=== PATIENT | male | born 1960 | race African-American/Black ===

== ENCOUNTER 2016-12-02 20:43 | Emergency (ER) | payer OTHER ==
[2016-12-02 21:32] LABS: BASOPHIL % 0.5 % (0-2); PLATELET COUNT 227 x10^3mcL (130-400)
[2016-12-02 21:33] LABS: RED CELL DISTRIBUTION WIDTH 14.8 % (11.5-14.5)
[2016-12-02 21:36] LABS: CALCIUM 8.8 mg/dL (8.5-10.1); CARBON DIOXIDE 24.4 mmol/L (21-32); CREATININE SERUM 1.6 mg/dL (0.7-1.3); POTASSIUM SERUM 3.9 mmol/L (3.5-5.1)
[2016-12-02 21:41] LABS: BILIRUBIN TOTAL 0.3 mg/dL (0.20-1.00); TOTAL PROTEIN, SERUM 7.4 g/dL (6.4-8.2)
[2016-12-02 21:45] LABS: ALBUMIN 3.2 g/dL (3.4-5.0)
[2016-12-02 21:49] LABS: CK-MB 1.8 ng/mL (0-3.6)
[2016-12-02 23:45] VITALS: BP 140/78
== END 2016-12-02 23:45 | disposition home or self-care (01) ==
LOC: ED 20:43
PROVIDERS: Emergency Medicine
DX: L97.919 Non-pressure chronic ulcer of unspecified part of right lower leg with unspecified severity (principal); I10 Essential (primary) hypertension; Z88.0 Allergy status to penicillin
CPT/HCPCS: 83880; J0696; J2270

== ENCOUNTER 2016-12-30 10:07 | Inpatient (IN) | payer OTHER ==
[~2016-12-30] VITALS: Ht 193 cm; Wt 124.7 kg
--- NOTE | 2016-12-30 10:30 | NUR ---
PT PRESENTS WITH DRSG AND PAIN TO RLE. PT REPORTS RECENT TREATMENT FOR WOUNDS WITH ABX AND STS THAT WOUNDS HAVE BEEN WORSENING. PT NOTED TO HAVE EDEMA TO RLE AND FAINT R PEDAL PULSE. PT IS AAOX4, RESP EVEN AND UNLABORED, RA. PT REPORTS WEAKNESS AND NO OTHER COMPLAINTS.
--- NOTE | 2016-12-30 10:35 | NUR ---
DR STAFFORD AT BEDSIDE FOR MSE. DRSG TO RLE REMOVED PER DR STAFFORD VERBAL ORDER
--- NOTE | 2016-12-30 10:40 | NUR ---
UPON REMOVAL OF DRSGS TO RLE, MULTIPLE WOUNDS NOTED WITH YELLOWISH DRAINAGE AND FOUL ODOR NOTED.
[2016-12-30 11:04] LABS: BASOPHIL % 0.2 % (0-2); PLATELET COUNT 178 x10^3mcL (130-400)
[2016-12-30 11:05] LABS: RED CELL DISTRIBUTION WIDTH 14.7 % (11.5-14.5)
--- NOTE | 2016-12-30 11:10 | NUR ---
RADIOLOGY AT BEDSIDE FOR MIRNA
--- NOTE | 2016-12-30 11:29 | NUR ---
PT SIGNED TDAP CONSENT FORM
[2016-12-30 11:33] LABS: CALCIUM 9.4 mg/dL (8.5-10.1); CARBON DIOXIDE 26.6 mmol/L (21-32); CREATININE SERUM 1.7 mg/dL (0.7-1.3); POTASSIUM SERUM 3.7 mmol/L (3.5-5.1)
[2016-12-30 11:44] LABS: ALBUMIN 3.4 g/dL (3.4-5.0); BILIRUBIN TOTAL 1.49 mg/dL (0.20-1.00); MAGNESIUM 1.9 mg/dL (1.8-2.4); TOTAL PROTEIN, SERUM 8.2 g/dL (6.4-8.2)
[2016-12-30 11:49] LABS: CK-MB < 0.5 ng/mL (0-3.6); CREATINE KINASE 275 U/L (39-308)
--- NOTE | 2016-12-30 12:08 | NUR ---
PT REMAINS IN STABLE CONDITION. RESP EVEN AND UNLABORED, RA. VS STABLE. NAD NTOED. PT AT BEDSIDE. NS AND VANCO INFUSING
--- NOTE | 2016-12-30 12:23 | NUR ---
DR NUNES AT BEDSIDE SPEAKING WITH PT AND PT
--- NOTE | 2016-12-30 13:39 | NUR ---
DR. STAFFORD INFORMED LACTIC ACID=2.2
--- NOTE | 2016-12-30 14:40 | NUR ---
ATTEMPTED MED REC. PT UNABLE TO RECALL HTN MED. INSTRCUTED TO BRING IN MEDS AFTER PT IS TRANSFERED TO [facility]. PT VERBALIZES UNDERSTANDING
--- NOTE | 2016-12-30 14:46 | NUR ---
REPORT GIVEN TO LANRE PETERSEN IN [facility] FOR CONTINUITY OF CARE
--- NOTE | 2016-12-30 15:30 | NUR ---
3RD AND 4TH BAGS OF NS BOLUS PER SEPSIS PROTOCOL WERE INITIATED IN ER AT 1400. 200MLS AND 100MLS REMAINING. INFUSING REMAINING FLUIDS. VS: TEMP 99.8, HR 108, BP 148/74, RR 24, O2 SAT 97 ON ROOM AIR. PARTNER AT THE BEDSIDE. WILL CONTINUE TO MONITOR.
[2016-12-30 15:36] VITALS: BP 148/74
--- NOTE | 2016-12-30 15:45 | NUR ---
REVEIVED PATIENT FROM ED VIA GUERNEY, PATIENT ALERT AND ORIENTED AT BEDSIDE, PATIENT C/O PAIN TO RLE AND WILL MEDICATED ORDERED, ORIENTED PATIENT TO ROOM AND SURROUNDINGS, BED IN LOW POSITION, BED RAILS UP X 2, CALL LIGHT WITHIN REACH, WILL ENDORSE CARE TO PRIMARY NURSE LANRE
[2016-12-30 15:51] LABS: CHOLESTEROL/HDL RATIO 2.2
[2016-12-30 16:07] LABS: T3 TOTAL 1.15 ng/mL
--- NOTE | 2016-12-30 16:30 | NUR ---
BP AT THIS TIME 145/78, MAP 100, HR 110
[2016-12-30 16:44] LABS: FREE T4 0.94 ng/dL (0.76-1.46); FREE THYROXINE INDEX 2.7 ug/dL (1.4-4.5); T4(THYROXINE) 8.1 ug/dL (4.7-13.3)
--- NOTE | 2016-12-30 16:59 | NUR ---
DR. NUNES IN TO SEE PATIENT AT THIS TIME AND DISCUSS PLAN OF CARE.
--- NOTE | 2016-12-30 17:26 | NUR ---
NOTIFIED DR. NUNES RHYTHM STRIP SHOWED ST BB WITH 1ST AVB AT THIS TIME
[2016-12-30 18:10] LABS: microscopic required? YES; urine erythrocyte 2+ (NEGATIVE)
[2016-12-30 18:19] LABS: AMPHETAMINE QUAL UR NONE DETECTED (NEG <=1000)
[2016-12-30 18:38] VITALS: BP 98/61
--- NOTE | 2016-12-30 19:21 | NUR ---
NOTIFIED DR. JACOBSON TEMP 101.3 AFTER TYLENOL WAS GIVEN (SEE EMAR). LAST BP 98/61, RR 20, HR 105. ENDORSED CARE TO NOC TRINITY DEL TORO.
[2016-12-30 19:30] VITALS: BP 94/54
--- NOTE | 2016-12-30 19:30 | NUR ---
PT IS A/O X4, VERBAL RESPONSIVE, ABLE TO TELL WHAT HE NEEDS, LUNG SOUND CLEAR BILATERAL, NO COUGH, NO SOB, PT IS ON TELE 22, ST, DENY ANY CHEST PAIN OR DISCOMFORT, BOWEL SOUND PRESENT ALL 4 QUADRATION, NO DISTENTION, NO TENDER. RIGHT LOW EXTREMITY IS WRAP BY LILLIAN WRAP BY PODATRIST, LEFT FEET HAS TRACE EDEMA NOTED. IV AT LEFT FA, NO LEAKING, NO INFILTRATION. ALL ADLS ASSIST, ALL NEED MET, CALL LIGHT IN REACH, WILL CONTINUE TO MONITOR.
--- NOTE | 2016-12-30 19:48 | NUR ---
TALKED TO DR. MIMS REGARDING THE PT B/P IS 94/54 MAP 64 AT THIS TIME NOW. IT'S BEEN CONTINUE DROPING SINCE 3PM, AND ALSO PT TEMP STILL 100.[address] MIMS MADE AWARE, ORDER NS BOLUS ONE TIME AND ALSO TORADOL FOR THE FEVER. WILL CONTINUE TO MONITOR THE PT.
[2016-12-30 22:07] VITALS: BP 94/57
--- NOTE | 2016-12-30 22:13 | NUR ---
RECHECK THE PT B/P IS REMAIN 94/57, MAP 69, HR 81, AFTER NS BOLUS X1 AND TEMP IS 98.1 NOW, PAGE DR. JACOBSON, FOR FURTHER ORDER. WILL CONTINUE TO MONITOR THE PT.
--- NOTE | 2016-12-30 22:16 | NUR ---
REPORT TO DR. JACOBSON REGARDING THE B/P REMAIN SAME AFTER 1 BOLUS, DR. JACOBSON MADE AWARE, NNO FOR NOW. WILL CONTINUE TO MONITOR.
--- NOTE | 2016-12-31 05:08 | NUR ---
PT IS SLEEPING, AWAKE BY TOUCH, DENY ANY RESPIRATORY DISTRESS, DENY ANY PAIN OR DISCOMFORT, IV AT LEFT FA, AND LEFT AC, NO LEAKING, NO INFILTRATION. ALL ADLS ASSIST, ALL NEED MET, CALL LIGHT IN REACH, WILL CONTINUE TO MONITOR.
[2016-12-31 05:15] VITALS: BP 112/72
--- NOTE | 2016-12-31 07:25 | NUR ---
RECEIVED REPORT FROM NOC TRINITY DEL TORO AT THIS TIME. PATIENT IS RESTING IN BED AWAKE, ALERT AND O X4 . TELE # [address] ON ROOM AIR, NO DISTRESS NOTED, LUNGS CTA. BOWEL SOUNDS ACTIVE, DENIES N/V/D. DENIES URINARY DISCOMFORT/DIFFICULTY. PATIENT HAS JOSE DE JESUS BOOT AND LILLIAN WRAP TO RIGHT LEG, CDI. IV TO LFA AND LAC IN PLACE. CALL LIGHT WITH IN REACH. WILL CONTINUE TO MONITOR.
--- NOTE | 2016-12-31 08:15 | NUR ---
ROUNDS MADE AT THIS TIME. DR. CASTILLO, RESIDENT TEAM, HEAD MACHINE FEEDER RAVIN, AND PRIMARY RN AT THE BEDSIDE. PLAN OF CARE IS DISCUSSED. QUESTIONS AND CONCERNS ADDRESSED.
[2016-12-31 09:36] LABS: BASOPHIL % 0.1 % (0-2); PLATELET COUNT 141 x10^3mcL (130-400)
[2016-12-31 09:39] LABS: RED CELL DISTRIBUTION WIDTH 14.7 % (11.5-14.5)
[2016-12-31 09:51] LABS: CALCIUM 8.3 mg/dL (8.5-10.1); CARBON DIOXIDE 24.9 mmol/L (21-32); CREATININE SERUM 1.6 mg/dL (0.7-1.3); MAGNESIUM 1.8 mg/dL (1.8-2.4); PHOSPHOROUS 1.8 mg/dL (2.5-4.9)
[2016-12-31 10:01] VITALS: BP 121/74
--- NOTE | 2016-12-31 10:12 | NUR ---
NOTIFIED DR. VANDANA MICHAELS 1.8 AT THIS TIME.
[2016-12-31 10:57] VITALS: Ht 193 cm; Wt 124.7 kg
--- NOTE | 2016-12-31 11:43 | NUR ---
PT NOTE [id number] Pt IS A 56 Y/O MALE ADMITTED DUE TO C/O RLE SWELLING AND OPEN WOUND; DX WITH SEPSIS 2/2 RLE CELLULITIS AND ULCERATION. PMH: HTN Pt LIVES WITH FAMILY IN A 2ND FLR APT WITH 12 STEPS; WAS INDEP IN ALL ADLs AND AMBULATION NO DEVICE; WORKS CURRICULUM DIRECTOR; NO DME AT HOME. Pt WAS CLEARED FOR PT PER RN. Pt WAS SEEN AWAKE RESTING IN BED, AGREED TO PARTICIPATE W/PT. S:DENIES PAIN O:BP AT REST 118/75, HR 106; SaO2 99% ON RA; TEMP 98.1F BED MOBILITY: SUPINE<->SIT INDEP TRANSFERS: SIT-STAND CGA STANDING BALANCE G-/F+ GAIT 140 FT NO DEVICE CGA; DECREASED STEP LENGTH BLE; USED IV POLE FOR SUPPORT; NO LOB NOTED; DENIES PAIN ON RLE POST GAIT Pt WAS ASSISTED BTB, IV LINE INTACT, 2 SIDERAILS UP, CALL LIGHT AND TABLE IN REACH; APPRECIATED CARE. RN NOTIFIED. A:Pt DEMONSTRATES WEAKNESS, DECREASED BALANCE/GAIT SAFETY; FALL RISK. Pt WAS EDUCATED ON [place] FOR RLE HEP TO BE PERFORMED DAILY TOLERATED, ABLE TO RETURN DEMO. P:POC TO CONSIST OF THEREX, THERACT, GAIT/STAIR TRAINING, BALANCE EX, SAFETY EDUC; ONCE DAILY 6X/WK X 1 WEEK. NO PT SERVICES REQUIRED POST ACUTE, NO DME REQUIRED. DX AND POC DISCUSSSED W/PROMPT CARE RN. [id number], [id number], TUG SCORE=11sec PVE(1) 1ST ATTEMPT FOR PT EVAL, Pt REQUESTED LATER EVAL PVE(1) ASSIST TO BATHROOM [id number] THEREX FOR BOTH LE INCLUDING LAQ, ANKLE PUMPS, AND HIP ABD; X 10 REPS EACH. THEREX8
--- NOTE | 2016-12-31 12:10 | NUR ---
IN TO SEE PATIENT AND CHECK BLOOD GLUCOSE. BLOOD GLUCOSE 63 AT THIS TIME. GAVE PATIENT MILK, JUICE AND CRACKERS. LUNCH ALSO ARRIVED. MILD SHAKINESS NOTED TO HANDS. NO SWEATING, LIGHTHEADNESS, OR CONFUSION NOTED. WILL MONITOR.
--- NOTE | 2016-12-31 12:20 | NUR ---
RECHECKED BLOOD GLUCOSE AT THIS TIME 63. PATIENT EATING LUNCH, AT THE BEDSIDE. FLOATING LABOR GANG SUPERVISOR LEA AWARE. WILL CONTINUE TO MONITOR.
[2016-12-31 13:58] VITALS: BP 125/72
[2016-12-31 15:43] LABS: BILIRUBIN DIRECT 0.48 mg/dL (0.0-0.2); BILIRUBIN TOTAL 1.18 mg/dL (0.20-1.00)
--- NOTE | 2016-12-31 17:22 | NUR ---
IN TO SEE PATIENT AND GIVE DUE MEDICATION (SEE EMAR). MEDICATED FOR PAIN TO RIGHT LEG 02/13. IS AT THE BEDSIDE.
[2016-12-31 17:27] VITALS: BP 115/63
[2016-12-31 19:40] VITALS: BP 101/64
--- NOTE | 2016-12-31 19:40 | NUR ---
REC'D PT FROM DAY SHIFT NURSE. AT BEDSIDE. PT RESTING COMFORTABLY IN BED. NO SIGNS OF DISTRESS NOTED. BREATHING EVEN/UNLABORED ON RA. ON TELE #22. DENIES CP, DIZZINESS, OR PALPITATIONS. RLE WARM, REDDNED, WITH EDEMA- UNNA BOOT WITH LILLIAN BANDAGE PLACE. ELEVATED WITH PILLOW. DENIES PAIN, TINGLING, OR NUMBING. ABLE TO WIGGLE TOES AND LIFT BOTH LEGS. CALL LIGHT WITHIN REACH, BED AT LOWEST POSITION. WILL CONTINUE TO MONITOR.
[2016-12-31 20:20] VITALS: BP 101/64
[2017-01-01] VITALS (7 sets, daily range): BP systolic 102–150; BP diastolic 56–92
--- NOTE | 2017-01-01 02:47 | NUR ---
PT RESTING IN BED WITH EYES CLOSED. AT BEDSIDE. NO SIGNS OF DISTRESS NOTED. BREATHING EVEN/UNLABORED ON RA. RLE ELEVATED. CALL LIGHT WITHIN REACH, BED AT LOWEST POSITION. WILL CONTINUE TO MONITOR.
--- NOTE | 2017-01-01 06:17 | NUR ---
PT RESTING COMFORTABLY IN BED. NO COMPLAINTS AT THIS TIME. DENIES PAIN OR NUMBNESS TO RLE. NO SIGNS OF DISTRESS NOTED. BREATHING EVEN/UNLABORED ON RA. NO SIGNIFICANT CHANGES DURING SHIFT. UNNA BOOT TO RLE CDI. CALL LIGHT WITHIN REACH, BED AT LOWEST POSITION. WILL ENDORSE TO DAY SHIFT NURSE.
[2017-01-01 07:21] LABS: BASOPHIL % 0.3 % (0-2); PLATELET COUNT 149 x10^3mcL (130-400); RED CELL DISTRIBUTION WIDTH 14.5 % (11.5-14.5)
--- NOTE | 2017-01-01 07:30 | NUR ---
RECEIVED REPORT FROM NOC RN AT [facility] AT THIS TIME. PATIENT IS AWAKE, ALERT AND O X 4. TELE # [address] ON ROOM AIR NO DISTRESS NOTED, DENIES SOB, LUNGS CTA. PULSES TO BLE WEAK, RADIAL PULSES MODERATE. EDEMA TO RLE NON PITTING. BOWEL SOUNDS ACTIVE, PASSING GAS. DENIES URINARY DISCOMFORT. RLE ELEVATED WITH PILLOW, JOSE DE JESUS BOOT WITH LILLIAN WRAP IN PLACE. DENIES ANY PAIN AT THIS TIME 0/10. IV TO LFA AND LAC INTACT. CALL LIGHT WITH IN REACH. WILL CONTINUE TO MONITOR.
[2017-01-01 07:32] LABS: CALCIUM 8.3 mg/dL (8.5-10.1); CARBON DIOXIDE 21.4 mmol/L (21-32); CHLORIDE SERUM 104 mmol/L (98-107); CREATININE SERUM 1.3 mg/dL (0.7-1.3); GFR1 > 60 mL/min; GLUCOSE SERUM 96 mg/dL (74-106); MAGNESIUM 1.9 mg/dL (1.8-2.4); PHOSPHOROUS 1.9 mg/dL (2.5-4.9); SODIUM SERUM 135 mmol/L (136-145)
--- NOTE | 2017-01-01 08:41 | NUR ---
ROUNDS MADE AT THIS TIME. DR. CASTILLO, RESIDENT TEAM, CULTURED [employer]ODUCTS MAKER WILL, AND PRIMARY RN AT THE BEDSIDE. PLAN OF CARE IS DISCUSSED. QUESTIONS AND CONCERNS ADDRESSED.
--- NOTE | 2017-01-01 10:50 | NUR ---
echocardiogram completed
--- NOTE | 2017-01-01 12:03 | NUR ---
NOTIFIED DR. ROSS NA 135, PHOS 1.9 AND RHYTHM STRIP SHOWED ST WITH BBB AND ELEVATED T WAVE AT THIS TIME
--- NOTE | 2017-01-01 12:03 | NUR ---
REPORTED NA 135, PHOS 1.9 AND RHYTHM STRIP SHOWED ST BBB WITH ELEVATED T WAVE TO DR. ROSS.
[2017-01-01] MEDS ORDERED: LEVAQUIN750 MG PO (13:15)
[2017-01-01] MEDS ORDERED: LAC PO (13:17)
[2017-01-01] MEDS ORDERED: CLINDAMYCIN150 M1 PO (13:17)
[2017-01-01] MEDS ORDERED: ASPIR 8181 MG PO (13:18)
[2017-01-01] MEDS ORDERED: LIPITOR10 MG PO (13:18)
[2017-01-01] MEDS ORDERED: THERA TABS1 TAB PO (13:19)
--- NOTE | 2017-01-01 15:13 | NUR ---
DR. ROSS IN TO SEE PATIENT AT THIS TIME. QUESTIONS AND CONCERNS ADDRESSED.
--- NOTE | 2017-01-01 15:22 | NUR ---
DISCHARGE INSTRUCTIONS GIVEN TO PATIENT AND AT THIS TIME. PATIENT VERBALIZES UNDERSTANDING. QUESTIONS AND CONCERNS ADDRESSED. BOTH IVS REMOVED, CATH INTACT TELE # 22 REMOVED AND RETURNED TO GARBAGE COLLECTOR DRIVER.
[2017-01-01] MEDS ORDERED: NORCO1 TA2 PO (16:00)
--- NOTE | 2017-01-01 16:22 | NUR ---
PATIENT FELT WARM VS: TEMP 102.6 ORAL, BP 150/92, MAP 110, HR 115, RR 20, O2 SAT 96%. COOLING MEASURES INITIATED. NOTIFIED DR. ROSS. WILL MEDICATE ORDRED.
--- NOTE | 2017-01-01 17:30 | NUR ---
SPOKE TO PATIENT AND DR. ROSS PATIENT WILL NOT BE DISCHARGED TODAY. NEW IV TO RFA PLACED BY OCTAVIO PETERSEN. WILL INITIATED IV FLUIDS AND MEDICATE ORDRED. AT THE BEDSIDE. WILL CONTINUE TO MONITOR.
--- NOTE | 2017-01-01 19:30 | NUR ---
PT IS A/O X4, VERBAL RESPONSIVE, ABLE TO TELL WHAT HE NEEDS, LUNG SOUND CLEAR BILATERAL, NO COUGH, NO SOB, PT IS ON TELE 15, SR WITH ELEVATE T WAVE, DENY ANY CHEST PAIN OR DISCOMFORT, BOWEL SOUND PRESENT ALL 4 QUADRANTS, NO DISTENTION, NO TENDER. TRACE EDEMA LEFT, SWELLING AT RIGHT LEG WITH LILLIAN WRAP BY PEDIATRIST, IV AT RIGHT FA, NO LEAKING, NO INFILTRATION. ALL ADLS ASSIST, ALL NEED MET, CALL LIGHT IN REACH, WILL CONTINUE TO MONITOR.
--- NOTE | 2017-01-01 20:10 | NUR ---
CALLED AND TALKED TO DR. BRAXTON REGARDING THE PT DOESNT HAS A BM SINCE 12/28, DR. BRAXTON MADE AWARE, WAITING FOR NEW ORDER
--- NOTE | 2017-01-01 20:26 | NUR ---
PT HAS TEMP 100.8 AT MOMENT, TYLENOL IS NOT DUE YET, CALL DR. BRAXTON REGARDING THE TEMP. DR. BRAXTON MADE AWARE, STATE WILL ORDER ALTERNATE MEDICATION FOR FEVER. PUT COOLING MEASURE ON PT FOREHEAD, AND WAITING FOR DR. BRAXTON NEW ORDER.
--- NOTE | 2017-01-02 05:20 | NUR ---
PT IS A/O X4, DENY ANY RESPIRATORY DISTRESS, DENY ANY PAIN OR DISCOMFORT, IV AT RIGTH FA, NO LEAKING, NO INFILTRATION. ALL ADLS ASSIST, ALL NEED MET, CALL LIGHT IN REACH, WILL CONTINUE TO MONITOR.
[2017-01-02 05:45] VITALS: BP 125/81
[2017-01-02 07:40] LABS: PLATELET COUNT 160 x10^3mcL (130-400)
--- NOTE | 2017-01-02 07:44 | NUR ---
RECEIVED PT LAYING IN BED AWAKE AND ALERT. DENIES PAIN AT THIS TIME. IV SITE APPAERS PATENT AND INFUSING WELL. NO APPARENT SIGNS OF DISTRESS NOTED. CALL LIGHT WITH REACH. ENCOURAGED TO CALL FOR ASSISTANCE WHEN NEEDED. WILL CONTINUE TO MONITOR
[2017-01-02 07:53] LABS: CARBON DIOXIDE 23.6 mmol/L (21-32); CREATININE SERUM 1.4 mg/dL (0.7-1.3); MAGNESIUM 1.9 mg/dL (1.8-2.4); PHOSPHOROUS 2.8 mg/dL (2.5-4.9); POTASSIUM SERUM 3.9 mmol/L (3.5-5.1)
[2017-01-02 08:56] LABS: BAND NEUTROPHIL 6 % (0-10); BASOPHIL 0 % (0-2); MONOCYTE 8 % (0-7); SEGMENTED NEUTROPHILS 82 % (37-75)
[2017-01-02 08:58] LABS: rbc morphology (normal/abnorm) NORMAL (NORMAL)
[2017-01-02 09:30] VITALS: BP 138/86
[2017-01-02 09:56] VITALS: BP 118/66
[2017-01-02 11:52] VITALS: BP 118/66
--- NOTE | 2017-01-02 12:32 | NUR ---
PT HAS TEMP OF 100.8. COOLING MEASURES STARTED. REMOVED BLANKET, INCREASE AC IN ROOM TO 70, GIVEN TYLENOL PO PRN. DR. NUNES IS AWARE. STATED TO HOLD OFF ON DISCHARGE UNTIL TEMP STABLIZES. WILL CONTINUE TO MONITOR
[2017-01-02 12:45] VITALS: BP 138/86
--- NOTE | 2017-01-02 14:47 | NUR ---
WENT OVER DISCHARGE PAPERWORK AND PT TEACHING WITH PT. PT APPEARED RECEPTIVE. AT BEDSIDE. REMOVED IV ACCESS. PT TOLERATED WELL. PT DENIES PAIN AT THIS TIME. NO APPARENT SIGNS OF ACUTE DISTRESS NOTED AT THIS TIME. ID BAND REMOVED AND DISCARDED IN SHREDDER. PT ESCORTED OUT BY NURSING STAFF
== END 2017-01-02 15:20 | disposition home or self-care (01) | DRG 871 ==
LOC: ED 10:07 → DU 11:55
PROVIDERS: Emergency Medicine; Family Medicine; ADMIT Family Medicine
DX: A41.9 Sepsis, unspecified organism (principal); N17.0 Acute kidney failure with tubular necrosis; L03.115 Cellulitis of right lower limb; E87.2 Acidosis; I42.9 Cardiomyopathy, unspecified; E86.0 Dehydration; I12.9 Hypertensive chronic kidney disease with stage 1 through stage 4 chronic kidney disease, or unspecified chronic kidney disease; N18.9 Chronic kidney disease, unspecified; L98.491 Non-pressure chronic ulcer of skin of other sites limited to breakdown of skin; E80.6 Other disorders of bilirubin metabolism; R65.20 Severe sepsis without septic shock; R31.9 Hematuria, unspecified; N28.1 Cyst of kidney, acquired; I73.9 Peripheral vascular disease, unspecified; R73.03 Prediabetes; Z88.0 Allergy status to penicillin; Z91.19 Patient's noncompliance with other medical treatment and regimen
CPT/HCPCS: 83880; 84439; 90715; 97110-GP; J1644; J1885; J1956; J2270; J2405; J3370; J3490; J7030; Q0092

== ENCOUNTER 2017-01-15 10:43 | Emergency (ER) | payer OTHER ==
[~2017-01-15 10:43] MED LIST: ASPIR 8181 MG PO; CLINDAMYCIN150 M1 PO; LAC PO; LEVAQUIN750 MG PO; LIPITOR10 MG PO; NORCO1 TA2 PO; THERA TABS1 TAB PO
[2017-01-15 12:03] VITALS: BP 140/83
== END 2017-01-15 12:03 | disposition home or self-care (01) ==
LOC: ED 10:43
DX: S81.811A Laceration without foreign body, right lower leg, initial encounter (principal); I10 Essential (primary) hypertension; Z88.0 Allergy status to penicillin; X58.XXXA Exposure to other specified factors, initial encounter; Y93.89 Activity, other specified; Y99.8 Other external cause status; Y92.89 Other specified places as the place of occurrence of the external cause

== ENCOUNTER 2017-01-17 10:38 | Emergency (ER) | payer OTHER ==
[~2017-01-17] VITALS: Ht 193 cm; Wt 127.6 kg
[2017-01-17 11:31] VITALS: BP 121/82
== END 2017-01-17 11:31 | disposition home or self-care (01) ==
LOC: ED 10:38
DX: I87.8 Other specified disorders of veins (principal); I83.93 Asymptomatic varicose veins of bilateral lower extremities; I10 Essential (primary) hypertension; E78.00 Pure hypercholesterolemia, unspecified; I73.9 Peripheral vascular disease, unspecified; Z88.0 Allergy status to penicillin

== ENCOUNTER 2018-03-30 10:35 | Emergency (ER) | payer OTHER ==
[~2018-03-30] VITALS: Ht 193 cm; Wt 158.3 kg
[2018-03-30 11:00] VITALS: Ht 193 cm; Wt 158.3 kg
[2018-03-30 12:48] VITALS: BP 150/92
== END 2018-03-30 12:48 | disposition home or self-care (01) ==
LOC: ED 10:35
DX: S90.811A Abrasion, right foot, initial encounter (principal); I87.8 Other specified disorders of veins; I10 Essential (primary) hypertension; X58.XXXA Exposure to other specified factors, initial encounter; Y92.9 Unspecified place or not applicable

== ENCOUNTER 2018-05-01 12:51 | Emergency (ER) | payer OTHER ==
[~2018-05-01] VITALS: Ht 193 cm; Wt 147.9 kg
[2018-05-01 13:11] VITALS: Ht 193 cm; Wt 147.9 kg
[2018-05-01 13:52] LABS: CALCIUM 9.4 mg/dL (8.5-10.1); CARBON DIOXIDE 24.6 mmol/L (21-32); CHLORIDE SERUM 108 mmol/L (98-107); CREATININE SERUM 1.3 mg/dL (0.7-1.3); GFR1 > 60 mL/min; GLUCOSE SERUM 108 mg/dL (74-106); POTASSIUM SERUM 3.9 mmol/L (3.5-5.1); SODIUM SERUM 143 mmol/L (136-145)
[2018-05-01 13:53] LABS: BASOPHIL % 0.8 % (0-2); PLATELET COUNT 190 x10^3mcL (130-400)
[2018-05-01 13:55] LABS: RED CELL DISTRIBUTION WIDTH 14.9 % (11.5-14.5)
[2018-05-01 14:42] VITALS: BP 159/101
== END 2018-05-01 14:42 | disposition home or self-care (01) ==
LOC: ED 12:51
PROVIDERS: Emergency Medicine
DX: I10 Essential (primary) hypertension (principal); Z88.0 Allergy status to penicillin
CPT/HCPCS: 36415; Q0092